=== PATIENT | male | born 1990 | race African-American/Black ===

== ENCOUNTER 2018-04-29 19:02 | Emergency (ER) | payer BC ==
[~2018-04-29] VITALS: Ht 180.3 cm; Wt 86.2 kg
[2018-04-29] MEDS ORDERED: IV RINGERS SOLUTION,LACTATED 1,000 ML IV SCH (19:13)
--- NOTE | 2018-04-29 19:22 | ED.ADGEN ---
Past History Past Medical History: Seizure Adult General Chief Complaint Chief Complaint "... I think I had seizure... I take a seizure med.. 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 Patient reports he takes 300 mg of suspected ( color of capsules) Dilantin every night. No change in med routine other than he states he has missed some dosages of his seizure meds. No history of fever or chills or immunosuppression. Patient reportedly found somewhat confused and appeared to be postictal by fellow longterm staff. Patient still appears somewhat post ictal. Moves all extremities on request. No obvious focal complaints. DTRs +2 patella and brachial. Trolley Collector equal. No drift. Ambulatory without problems. Pt. has not seen his neurologist for > 6 yrs. Review of Systems Review of Systems Constitutional: Denies fever or chills [] Eyes: Denies change in visual acuity, redness, or eye pain [] HENT: Denies nasal congestion or sore throat [] Respiratory: Denies cough or shortness of breath [] Cardiovascular: No additional information not addressed in HPI [] GI: Denies abdominal pain, nausea, vomiting, bloody stools or diarrhea [] : Denies dysuria or hematuria [] Musculoskeletal: Denies back pain or joint pain []Some generalize muscle aches like when he has a seizure. Integument: Denies rash or skin lesions [] Neurologic: Denies headache, focal weakness or sensory changes [] Endocrine: Denies polyuria or polydipsia [] All other systems were reviewed and found to be within normal limits, except as documented in this note. Family History Family History Non-contributory Current Medications Current Medications Current Medications Medications (Trade) Dose Ordered Sig/Behzad Start Time Stop Time Status Last Admin Dose Admin Lactated Ringer's 1,000 ml @ 1,000 mls/hr Q1H 04/29/18 19:13 04/29/18 20:12 DC 04/29/18 19:27 1,000 MLS/HR Lorazepam (Ativan) 2 mg 1X ONCE 04/29/18 19:30 04/29/18 19:31 DC 04/29/18 19:28 2 MG Ondansetron HCl (Zofran Odt) 8 mg 1X ONCE 04/29/18 19:30 04/29/18 19:31 DC 04/29/18 19:30 8 MG Phenytoin Sodium (Dilantin) 600 mg 1X ONCE 04/29/18 20:15 04/29/18 20:16 DC 04/29/18 20:13 600 MG Allergies Allergies Allergies Coded Allergies Type Severity Reaction Last Updated Verified No Known Drug Allergies 04/29/18 No Physical Exam Physical Exam Constitutional: Well developed, well nourished, no acute distress, non-toxic appearance. [] HENT: Normocephalic, atraumatic, bilateral external ears normal, oropharynx moist, no oral exudates, nose normal. [] Eyes: PERRLA, EOMI, conjunctiva normal, no discharge. [] Neck: Normal range of motion, no tenderness, supple, no stridor. [] Cardiovascular:Heart rate regular rhythm, no murmur [] Lungs & Thorax: Bilateral breath sounds clear to auscultation [] Abdomen: Bowel sounds normal, soft, no tenderness, no masses, no pulsatile masses. [] Skin: Warm, dry, no erythema, no rash. [] Back: No tenderness, no CVA tenderness. [] Extremities: Some complaints of generalized muscle tenderness, no cyanosis, no clubbing, ROM intact, no edema. [] Neurologic: Alert and oriented X 3, normal motor function, normal sensory function, no focal deficits noted. [] Psychologic: Affect normal, judgement normal, mood normal. [] Current Patient Data Vital Signs Vital Signs Date Time Temp Pulse Resp B/P (MAP) Pulse Ox O2 Delivery O2 Flow Rate FiO2 04/29/18 20:17 92 16 135/72 (93) 100 Room Air 04/29/18 19:10 99.3 Lab Results Laboratory Tests Test 04/29/18 19:11 04/29/18 19:17 04/29/18 19:35 Glucose (Fingerstick) 85 mg/dL (70-99) White Blood Count 10.2 x10^3/uL (4.0-11.0) Red Blood Count 5.91 x10^6/uL (4.30-5.70) H Hemoglobin 15.4 g/dL (13.0-17.5) Hematocrit 45.7 % (39.0-53.0) Mean Corpuscular Volume 77 fL (79-100) L Mean Corpuscular Hemoglobin 26 pg (25-35) Mean Corpuscular Hemoglobin Concent 34 g/dL (31-37) Red Cell Distribution Width 14.2 % (11.5-14.5) Platelet Count 237 x10^3/uL (140-400) Neutrophils (%) (Auto) 78 % (31-73) H Lymphocytes (%) (Auto) 13 % (24-48) L Monocytes (%) (Auto) 6 % (0-9) Eosinophils (%) (Auto) 3 % (0-3) Basophils (%) (Auto) 0 % (0-3) Neutrophils # (Auto) 7.9 x10^3uL (1.8-7.7) H Lymphocytes # (Auto) 1.3 x10^3/uL (1.0-4.8) Monocytes # (Auto) 0.6 x10^3/uL (0.0-1.1) Eosinophils # (Auto) 0.3 x10^3/uL (0.0-0.7) Basophils # (Auto) 0.0 x10^3/uL (0.0-0.2) Sodium Level 139 mmol/L (136-145) Potassium Level 3.4 mmol/L (3.5-5.1) L Chloride Level 101 mmol/L (98-107) Carbon Dioxide Level 26 mmol/L (21-32) Anion Gap 12 (6-14) Blood Urea Nitrogen 10 mg/dL (8-26) Creatinine 1.3 mg/dL (0.7-1.3) Estimated GFR (Cockcroft-Gault) 66.2 Glucose Level 94 mg/dL (70-99) Calcium Level 9.1 mg/dL (8.5-10.1) Total Bilirubin 0.3 mg/dL (0.2-1.0) Direct Bilirubin 0.1 mg/dL (0.0-0.2) Aspartate Amino Transferase (AST) 45 U/L (15-37) H Alanine Aminotransferase (ALT) 25 U/L (16-63) Alkaline Phosphatase 148 U/L (46-116) H Troponin I Quantitative < 0.017 ng/mL (0-0.055) Total Protein 8.3 g/dL (6.4-8.2) H Albumin 4.3 g/dL (3.4-5.0) Phenytoin (Dilantin) Level 4.6 mcg/mL (10.0-20.0) L Phenytoin Last Dose Date Unknown Phenytoin Last Dose Time Unknown Urine Collection Type Unknown Urine Color Yellow Urine Clarity Hazy Urine pH 6.0 Urine Specific [place] 1.025 Urine Protein 30 mg/dl (NEG-TRACE) Urine Glucose (UA) Neg mg/dL (NEG) Urine Ketones (Stick) Trace mg/dL (NEG) Urine Blood Neg (NEG) Urine Nitrite Neg (NEG) Urine Bilirubin Neg (NEG) Urine Urobilinogen Dipstick 0.2 mg/dL (0.2 mg/dL) Urine Leukocyte Esterase Neg (NEG) Urine RBC 1-2 /HPF (0-2) Urine WBC 1-4 /HPF (0-4) Urine Squamous Epithelial Cells Few /LPF Urine Bacteria 0 /HPF (0-FEW) Urine Hyaline Casts Few /HPF Urine Mucus Mod /LPF EKG EKG [] Radiology/Procedures Radiology/Procedures [] Course & Med Decision Making Course & Med Decision Making Pertinent Labs and Imaging studies reviewed. (See chart for details). Follow up with primary and neurology. Pt. to take his normal 300 mg tonight and again in AM. Return if any concerns. Avoid hazard activity such as driving until released by primary. Return if any concerns. [] Final Impression Final Impression 1. Suspect Seizure 2. Sub- therapeutic Dilatin Level. [](4.6) Dragon Disclaimer Dragon Disclaimer This electronic medical record was generated, in whole or in part, using a voice recognition dictation system. AYO RUCKER MD Apr 29, 2018 19:22
[2018-04-29] MEDS ORDERED: ONDANSETRON ODT 4 MG TAB.RAPDIS PO ONE (19:30)
[2018-04-29] MEDS ORDERED: LORazepam 1 MG TABLET PO ONE (19:30)
--- NOTE | 2018-04-29 19:33 | EKG ---
[address] [address] Test Date: 2018-04-29 Test Time: 19:28:01 Pat Name: ELROY UPTON Department: Room: Gender: M Candy Puller: : 1990 Requested By: AYO RUCKER Order Number: [id number] Reading MD: Chapo Arechiga Measurements Intervals [place] Rate: 86 P: 33 SC: 174 QRS: 16 QRSD: 106 T: 15 QT: 340 QTc: 410 Interpretive Statements SINUS RHYTHM NO SPECIFIC ECG ABNORMALITIES RI6.01 No previous ECG available for comparison Electronically Signed On 05-03-2018 16:57:34 CDT by Chaop Arechiga
[2018-04-29 19:48] LABS: BASO % 0 % (0-3); EOS # 0.3 x10^3/uL (0.0-0.7); EOS % 3 % (0-3); HEMATOCRIT 45.7 % (39.0-53.0); HEMOGLOBIN 15.4 g/dL (13.0-17.5); LYMPH # 1.3 x10^3/uL (1.0-4.8); LYMPH % 13 % (24-48); MEAN CORPUSCULAR HEMOGLOBIN 26 pg (25-35); MEAN CORPUSCULAR HGB CONC 34 g/dL (31-37); MEAN CORPUSCULAR VOLUME 77 fL (79-100); MONO # 0.6 x10^3/uL (0.0-1.1); MONO % 6 % (0-9); NEUT # 7.9 x10^3uL (1.8-7.7); NEUT % 78 % (31-73); PLATELET COUNT 237 x10^3/uL (140-400); RED BLOOD COUNT 5.91 x10^6/uL (4.30-5.70); RED CELL DISTRIBUTION WIDTH 14.2 % (11.5-14.5); WHITE BLOOD COUNT 10.2 x10^3/uL (4.0-11.0)
[2018-04-29 19:57] LABS: CLARITY,URINE HAZY; COLOR,URINE YELLOW
[2018-04-29 19:57] LABS: ALBUMIN 4.3 g/dL (3.4-5.0); ALK PHOS 148 U/L (46-116); ALT (SGPT) 25 U/L (16-63); ANION GAP 12 (6-14); AST (SGOT) 45 U/L (15-37); BLOOD UREA NITROGEN 10 mg/dL (8-26); CALCIUM 9.1 mg/dL (8.5-10.1); CARBON DIOXIDE 26 mmol/L (21-32); CHLORIDE 101 mmol/L (98-107); CREATININE 1.3 mg/dL (0.7-1.3); DIRECT BILIRUBIN 0.1 mg/dL (0.0-0.2); GFR 66.2; GLUCOSE 94 mg/dL (70-99); PHENY 4.6 mcg/mL (10.0-20.0); POTASSIUM 3.4 mmol/L (3.5-5.1); SODIUM 139 mmol/L (136-145); TOTAL BILIRUBIN 0.3 mg/dL (0.2-1.0); TOTAL PROTEIN 8.3 g/dL (6.4-8.2)
[2018-04-29 20:13] LABS: BILIRUBIN,URINE NEG (NEG); GLUCOSE,URINE NEG (NEG); NITRITE,URINE NEG (NEG); UROBILINOGEN,URINE 0.2 mg/dL (0.2 mg/dL)
[2018-04-29 20:14] LABS: BACTERIA,URINE 0 /HPF (0-FEW); HYALINE CASTS, URINE FEW /HPF; SQUAMOUS EPITHELIAL CELL,UR FEW /LPF
[2018-04-29] MEDS ORDERED: PHENYTOIN SODIUM EXTENDED 100 MG CAPSULE PO ONE (20:15)
[2018-04-29 20:17] VITALS: BP 135/72
== END 2018-04-29 20:48 | disposition home or self-care (01) ==
LOC: ER 19:02
DX: R79.1 Abnormal coagulation profile (principal); R41.0 Disorientation, unspecified
CPT/HCPCS: 36415; 80048; 80076; 80185; 81001; 82947; 84484; 85025; 93005; 96360; 99285; J7120; Q0162

== ENCOUNTER 2019-04-04 16:41 | Emergency (ER) | payer OTHER, BC ==
[~2019-04-04] VITALS: Ht 180.3 cm; Wt 98.1 kg
--- NOTE | 2019-04-04 17:12 | PHYS DOC ---
Past History Past Medical History: Seizure Past Surgical History: Other Alcohol Use: Rarely Drug Use: None Adult General Chief Complaint Chief Complaint: BODY FLUID EXPOSURE HPI HPI 29-year-old male presents with body fluid exposure. The patient is unsure it was just toilet water or if there was urine or other substances in it. He works as a guard a local long term. He was helping clean up the cell next 2 this prisoner when the prisoner through fluids on him around a fair that was put up to prevent the prisoner from throwing things unable to the prisoners had a history of doing this in the past. The patient states that he got on his face and into his left eye. He has thoroughly rinsed the area. He denies any other injuries or complaints Review of Systems Review of Systems Constitutional: Denies fever or chills [] Eyes: Fluid exposure to the left eye[] HENT: Denies nasal congestion or sore throat [] Respiratory: Denies cough or shortness of breath [] Cardiovascular: No additional information not addressed in HPI [] GI: Denies abdominal pain, nausea, vomiting, bloody stools or diarrhea [] : Denies dysuria or hematuria [] Musculoskeletal: Denies back pain or joint pain [] Integument: Denies rash or skin lesions [] Neurologic: Denies headache, focal weakness or sensory changes [] Endocrine: Denies polyuria or polydipsia [] All other systems were reviewed and found to be within normal limits, except as documented in this note. Allergies Allergies Allergies Coded Allergies Type Severity Reaction Last Updated Verified shellfish derived Allergy Unknown 04/04/19 Yes Physical Exam Physical Exam Constitutional: Well developed, well nourished, no acute distress, non-toxic appearance. [] HENT: Normocephalic, atraumatic, bilateral external ears normal, oropharynx moist, no oral exudates, nose normal. [] Eyes: PERRLA, EOMI, conjunctiva normal, no discharge. [] Neck: Normal range of motion, no tenderness, supple, no stridor. [] Cardiovascular:Heart rate regular rhythm, no murmur [] Lungs & Thorax: Bilateral breath sounds clear to auscultation [] Abdomen: Bowel sounds normal, soft, no tenderness, no masses, no pulsatile masses. [] Skin: Warm, dry, no erythema, no rash. [] Back: No tenderness, no CVA tenderness. [] Extremities: No tenderness, no cyanosis, no clubbing, ROM intact, no edema. [] Neurologic: Alert and oriented X 3, normal motor function, normal sensory function, no focal deficits noted. [] Psychologic: Affect normal, judgement normal, mood normal. [] Current Patient Data Vital Signs Vital Signs Date Time Temp Pulse Resp B/P (MAP) Pulse Ox O2 Delivery O2 Flow Rate FiO2 04/04/19 16:41 98.7 63 18 97 Room Air EKG EKG [] Radiology/Procedures Radiology/Procedures [] Course & Med Decision Making Course & Med Decision Making Pertinent Labs and Imaging studies reviewed. (See chart for details) The patient does not have any current complaints. Labs drawn, CBC, CMP, hepatitis panel, HIV antibody screen. I'll inform the patient these will go back to his employer and they will follow up with him. He is stable for discharge at this time. [] Dragon Disclaimer Dragon Disclaimer This electronic medical record was generated, in whole or in part, using a voice recognition dictation system. Departure Departure: Impression: Primary Impression: Patient exposure to body fluids Disposition: HOME, SELF-CARE Condition: STABLE Referrals: MARCO BARTH RN, MSN, CELL CHANGER (PCP) Patient Instructions: Body Fluid Exposure KAREN GREEN DO April 04, 2019 17:12
[2019-04-04 17:20] VITALS: BP 134/87
[2019-04-04 17:20] LABS: BASO % 1 % (0-3); EOS # 0.3 x10^3/uL (0.0-0.7); EOS % 6 % (0-3); HEMATOCRIT 46.2 % (39.0-53.0); HEMOGLOBIN 15.3 g/dL (13.0-17.5); LYMPH # 1.3 x10^3/uL (1.0-4.8); LYMPH % 31 % (24-48); MEAN CORPUSCULAR HEMOGLOBIN 26 pg (25-35); MEAN CORPUSCULAR HGB CONC 33 g/dL (31-37); MEAN CORPUSCULAR VOLUME 78 fL (79-100); MONO # 0.2 x10^3/uL (0.0-1.1); MONO % 5 % (0-9); NEUT # 2.5 x10^3uL (1.8-7.7); NEUT % 58 % (31-73); PLATELET COUNT 193 x10^3/uL (140-400); RED BLOOD COUNT 5.89 x10^6/uL (4.30-5.70); RED CELL DISTRIBUTION WIDTH 14.1 % (11.5-14.5); WHITE BLOOD COUNT 4.4 x10^3/uL (4.0-11.0)
[2019-04-04 17:36] LABS: ALBUMIN 4.1 g/dL (3.4-5.0); ALBUMIN/GLOBULIN RATIO 1.1 (1.0-1.7); CALCIUM 9.1 mg/dL (8.5-10.1); CREATININE 1.1 mg/dL (0.7-1.3); GFR 96.4; POTASSIUM 3.5 mmol/L (3.5-5.1); TOTAL BILIRUBIN 0.3 mg/dL (0.2-1.0); TOTAL PROTEIN 7.7 g/dL (6.4-8.2)
== END 2019-04-04 17:20 | disposition home or self-care (01) ==
LOC: ER 16:41
DX: Z77.21 Contact with and (suspected) exposure to potentially hazardous body fluids (principal); Z91.013 Allergy to seafood
CPT/HCPCS: 36415; 80053; 85025; 86703; 86705; 86709; 86803; 87340; 99284

== ENCOUNTER 2019-06-26 17:34 | Emergency (ER) | payer OTHER, BC ==
--- NOTE | 2019-06-26 17:42 | ED.ADGEN ---
Past History Past Medical History: Seizure Past Surgical History: Other Alcohol Use: Rarely Drug Use: None Adult General Chief Complaint Chief Complaint ".. I was at work... I forgot to take my Dilantin a couple days... I had a seizure.. 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 Patient gives history of accidental noncompliance with his Dilantin medications. Patient has had seizures at his entire life with breakthrough seizures if he does not take his meds as directed. Patient currently on Dilantin. No history of fever or chills. No history immunosuppression. Up-to-date with vaccinations. Patient normally follows with Dr. Barth. Review of Systems Review of Systems Constitutional: Denies fever or chills [] Eyes: Denies change in visual acuity, redness, or eye pain [] HENT: Denies nasal congestion or sore throat []complains of right eyebrow laceration Respiratory: Denies cough or shortness of breath [] Cardiovascular: No additional information not addressed in HPI [] GI: Denies abdominal pain, nausea, vomiting, bloody stools or diarrhea [] : Denies dysuria or hematuria [] Musculoskeletal: Denies back pain or joint pain [] Integument: Denies rash or skin lesions [] Neurologic: Denies headache, focal weakness or sensory changes []complaints of a tonic clonic seizure Endocrine: Denies polyuria or polydipsia [] All other systems were reviewed and found to be within normal limits, except as documented in this note. Family History Family History Noncontributory Current Medications Current Medications Current Medications Medications (Trade) Dose Ordered Sig/Behzad Start Time Stop Time Status Last Admin Dose Admin Bacitracin (Bacitracin Topical Pkt) 1 pkt 1X ONCE 06/26/19 19:15 06/26/19 19:16 DC 06/26/19 20:15 1 PKT Cephalexin HCl (Keflex) 500 mg 1X ONCE 06/26/19 22:00 06/26/19 22:01 DC 06/26/19 22:23 500 MG Diphtheria/ Tetanus/Acell Pertussis (Boostrix) 0.5 ml ONCE ONCE 06/26/19 19:15 8/11/19 19:16 DC 06/26/19 20:15 0.5 ML Lactated Ringer's 1,000 ml @ 1,000 mls/hr Q1H 06/26/19 18:33 06/26/19 19:32 DC 06/26/19 18:51 1,000 MLS/HR Lidocaine HCl 20 ml 1X ONCE 06/26/19 19:15 06/26/19 19:16 DC Lidocaine/ Epinephrine (Xylocaine 2%-Epi 1:100,000) 20 ml 1X ONCE 06/26/19 19:15 06/26/19 19:16 DC 06/26/19 20:15 20 ML Lorazepam (Ativan Inj) 2 mg STK-MED ONCE 06/26/19 17:52 06/26/19 17:52 DC Ondansetron HCl (Zofran Odt) 8 mg 1X ONCE 06/26/19 21:30 06/26/19 21:03 DC Phenytoin Sodium (Dilantin) 300 mg 1X ONCE 06/26/19 22:00 06/26/19 22:01 DC 06/26/19 22:23 300 MG Tetanus/ Diphtheria Toxoids Adsorbed (Tenivac Vial) 0.5 ml ONCE ONCE 06/26/19 19:15 06/26/19 19:12 DC Allergies Allergies Allergies Coded Allergies Type Severity Reaction Last Updated Verified shellfish derived Allergy Unknown 04/04/19 Yes Physical Exam Physical Exam Constitutional: Well developed, well nourished, no acute distress, non-toxic ap pearance. [] HENT: Normocephalic, 6 cm laceration to bone on Rt eye brow, bilateral external ears normal, oropharynx moist, no oral exudates, nose normal. [] Eyes: PERRLA, EOMI, conjunctiva normal, no discharge. [] Reports no visual changes. No lateral nystagmus. Neck: Normal range of motion, no tenderness, supple, no stridor. [] Cardiovascular:Heart rate regular rhythm, no murmur [] Lungs & Thorax: Bilateral breath sounds clear to auscultation [] Abdomen: Bowel sounds normal, soft, no tenderness, no masses, no pulsatile masses. [] Skin: Warm, dry, no erythema, no rash. [] Back: No tenderness, no CVA tenderness. [] Extremities: No tenderness, no cyanosis, no clubbing, ROM intact, no edema. [] Neurologic: Alert and oriented X 3, normal motor function, normal sensory function, no focal deficits noted. []DTR + 2 patella and brachial. No drift. Physician Relations Manager equal. Rt. hand dominate. Ambulatory without problems. Psychologic: Affect normal, judgement normal, mood normal. [] Current Patient Data Vital Signs Vital Signs Date Time Temp Pulse Resp B/P (MAP) Pulse Ox O2 Delivery O2 Flow Rate FiO2 06/26/19 17:57 98 18 96 Room Air Lab Results Laboratory Tests Test 06/26/19 17:41 06/26/19 19:55 White Blood Count 12.6 x10^3/uL (4.0-11.0) H Red Blood Count 5.83 x10^6/uL (4.30-5.70) H Hemoglobin 15.1 g/dL (13.0-17.5) Hematocrit 46.2 % (39.0-53.0) Mean Corpuscular Volume 79 fL (79-100) Mean Corpuscular Hemoglobin 26 pg (25-35) Mean Corpuscular Hemoglobin Concent 33 g/dL (31-37) Red Cell Distribution Width 13.5 % (11.5-14.5) Platelet Count 301 x10^3/uL (140-400) Neutrophils (%) (Auto) 73 % (31-73) Lymphocytes (%) (Auto) 17 % (24-48) L Monocytes (%) (Auto) 7 % (0-9) Eosinophils (%) (Auto) 3 % (0-3) Basophils (%) (Auto) 1 % (0-3) Neutrophils # (Auto) 9.1 x10^3uL (1.8-7.7) H Lymphocytes # (Auto) 2.1 x10^3/uL (1.0-4.8) Monocytes # (Auto) 0.8 x10^3/uL (0.0-1.1) Eosinophils # (Auto) 0.4 x10^3/uL (0.0-0.7) Basophils # (Auto) 0.1 x10^3/uL (0.0-0.2) Prothrombin Time 11.1 SEC (9.4-11.4) Prothrombin Time INR 1.1 (0.9-1.1) Activated Partial Thromboplast Time 23 SEC (23-33) Sodium Level 142 mmol/L (136-145) Potassium Level 4.0 mmol/L (3.5-5.1) Chloride Level 104 mmol/L (98-107) Carbon Dioxide Level 18 mmol/L (21-32) L Anion Gap 20 (6-14) H Blood Urea Nitrogen 13 mg/dL (8-26) Creatinine 1.8 mg/dL (0.7-1.3) H Estimated GFR (Cockcroft-Gault) 54.6 Glucose Level 96 mg/dL (70-99) Calcium Level 9.7 mg/dL (8.5-10.1) Magnesium Level 2.2 mg/dL (1.8-2.4) Total Bilirubin 0.2 mg/dL (0.2-1.0) Direct Bilirubin 0.1 mg/dL (0.0-0.2) Aspartate Amino Transferase (AST) 53 U/L (15-37) H Alanine Aminotransferase (ALT) 27 U/L (16-63) Alkaline Phosphatase 136 U/L (46-116) H Creatine Kinase 439 U/L (39-308) H Troponin I Quantitative < 0.017 ng/mL (0-0.055) IG-Bao-W-Type Natriuretic Peptide 10 pg/mL (0-124) Total Protein 7.9 g/dL (6.4-8.2) Albumin 4.3 g/dL (3.4-5.0) Phenytoin (Dilantin) Level 1.6 mcg/mL (10.0-20.0) L Phenytoin Last Dose Date Unknown Phenytoin Last Dose Time Unknown Urine Collection Type Void Urine Color Yellow Urine Clarity Clear Urine pH 5.5 Urine Specific [place] 1.025 Urine Protein 30 mg/dl (NEG-TRACE) Urine Glucose (UA) Neg mg/dL (NEG) Urine Ketones (Stick) Neg mg/dL (NEG) Urine Blood Neg (NEG) Urine Nitrite Neg (NEG) Urine Bilirubin Neg (NEG) Urine Urobilinogen Dipstick 0.2 mg/dL (0.2 mg/dL) Urine Leukocyte Esterase Neg (NEG) Urine RBC Occ /HPF (0-2) Urine WBC Occ /HPF (0-4) Urine Squamous Epithelial Cells Few /LPF Urine Bacteria 0 /HPF (0-FEW) Urine Mucus Mod /LPF Urine Opiates Screen Neg (NEG) Urine Methadone Screen Neg (NEG) Urine Barbiturates Neg (NEG) Urine Phencyclidine Screen Neg (NEG) Urine Amphetamine/Methamphetamine Neg (NEG) Urine Benzodiazepines Screen Neg (NEG) Urine Cocaine Screen Neg (NEG) Urine Cannabinoids Screen Neg (NEG) Urine Ethyl Alcohol Neg (NEG) EKG EKG My interpretation EKG shows a sinus rhythm at 84 bpm. There is some nonspecific inferior changes. But no findings acute STEMI of contralateral changes. Does have an J-point findings in V2 3 and 4 but no contralateral changes.[] Radiology/Procedures Radiology/Procedures [address] [address] IMAGING REPORT Signed PATIENT: ELROY UPTON ACCOUNT: [id number] : 1990 LOCATION: ER AGE: 29 SEX: M EXAM STATUS: PRE ER ORD. PHYSICIAN: AYO RUCKER MD REASON: seizure PROCEDURE: CHEST PA & LATERAL Exam: Chest 2 views INDICATION: Seizure TECHNIQUE: Frontal and lateral views of the chest Comparisons: None FINDINGS: The cardiomediastinal silhouette and pulmonary vessels are within normal limits. The lung and pleural spaces are clear. IMPRESSION: No acute cardiopulmonary process. Electronically signed by: Tanvir Romero MD (06/26/2019 7:34 PM) [facility] DICTATED AND SIGNED BY: TANVIR ROMERO MD DATE: 06/26/191933 CC: AYO RUCKER MD; MARCO BARTH RN, MSN, WIRE ROPE FABRICATION SUPERVISOR ~ IMAGING REPORT Signed PATIENT: ANA UPTONPINO Yessica ACCOUNT: [id number] : 1990 LOCATION: ER AGE: 29 SEX: M EXAM STATUS: PRE ER ORD. PHYSICIAN: AYO RUCKER MD REASON: seizure PROCEDURE: CHEST PA & LATERAL Exam: Chest 2 views INDICATION: Seizure TECHNIQUE: Frontal and lateral views of the chest Comparisons: None FINDINGS: The cardiomediastinal silhouette and pulmonary vessels are within normal limits. The lung and pleural spaces are clear. IMPRESSION: No acute cardiopulmonary process. Electronically signed by: Tanvir Romero MD (06/26/2019 7:34 PM) [facility] DICTATED AND SIGNED BY: TANVIR ROMERO MD DATE: 06/26/191933 CC: AYO RUCKER MD; MARCO BARTH RN, MSN, WIRE ROPE FABRICATION SUPERVISOR ~ [][place] [address] IMAGING REPORT Signed PATIENT: LEROY UPTON ACCOUNT: [id number] : 1990 LOCATION: ER AGE: 29 SEX: M EXAM STATUS: PRE ER ORD. PHYSICIAN: AYO RUCKER MD REASON: Seizure, head injury above right eye PROCEDURE: CT HEAD AND CERVICAL SPINE WO Exam: CT head and cervical spine INDICATION: Seizure head injury TECHNIQUE: Sequential axial images through the head and cervical spine were obtained without the administration of IV contrast. Comparisons: None FINDINGS: Head: No focal parenchymal lesion or hemorrhage is identified. There is no midline shift or sulcal effacement. No acute vascular territory infarction is identified. Monroy-white distinction is preserved. The ventricular system is within normal limits without compression hydrocephalus. The basal cisterns are well maintained. Contusion overlying the right superior orbital ridge. Globes and intraorbital contents are normal. Frothy secretions within the left maxillary sinus. No acute fractures. Cervical spine: Vertebral body heights and alignment are well-maintained. Fractures of the cervical spine is not identified. No significant spondylotic changes in the cervical spine. Visualized paraspinal soft tissues are unremarkable. IMPRESSION: 1. Extracranial contusion overlying the right superior orbital ridge without underlying fracture or intracranial abnormality identified. 2. Negative CT C-spine for acute traumatic injury. 3. Sinus disease described above. Exposure: One or more of the following in the visualized dose reduction techniques were utilized for this examination: 1. Automated exposure control 2. Adjustment of the MA and/or KV according to patient size Use of iterative of reconstructive technique Electronically signed by: Tanvir Romero MD (06/26/2019 7:32 PM) [facility] DICTATED AND SIGNED BY: TANVIR ROMERO MD DATE: 06/26/191931 CC: AYO RUCKER MD; MARCO BARTH RN, MSN, WIRE ROPE FABRICATION SUPERVISOR ~ Course & Med Decision Making Course & Med Decision Making Pertinent Labs and Imaging studies reviewed. (See chart for details) Procedure note-laceration repair- Laceration clean with normal saline. Betadine applied to edge of laceration. Injected edge of laceration with 2% lidocaine and a supra orbital block. Re- irrigated laceration with normal saline. Sterile drape and gloves .Placed 6x 6-0 Vicryl deep sutures and 12x 6-0 proline sutures. Patient had no visual changes. Recent follow-up plastic surgery if unhappy with scarring. Patient apply Polysporin 4 times a day to laceration site. Keep area clean and dry. Patient take Dilantin as directed. Patient follow-up primary care. Patient take Keflex 500 mg 3 times a day . Use normal saline rinses multiple times a day. Use Flonase 2 sprays at night. Patient to keep laceration site clean and dry. Patient apply Polysporin to site 4 times a day. No direct shower water. Patient to remove every other suture had day 5 and the remainder at day 7. Patient to expect scarring. Patient use Steri-Strip after removal of sutures. Patient return of any concerns. Head injury precautions. [] Final Impression Final Impression 1. Laceration[] 6 cm right eyebrow 2. Seizure-Tonic Clonic 3. Head Injury 4. Left maxillary sinusitis 5. Subtherapeutic Dilantin level Dragon Disclaimer Dragon Disclaimer This electronic medical record was generated, in whole or in part, using a voice recognition dictation system. Dragon Disclaimer This chart was dictated in whole or in part using Voice Recognition software in a busy, high-work load, and often noisy Emergency Department environment. It may contain unintended and wholly unrecognized errors or omissions. AYO RUCKER MD Jun 26, 2019 17:42
[2019-06-26] MEDS ORDERED: IV RINGERS SOLUTION,LACTATED 1,000 ML IV SCH (18:33)
[2019-06-26 18:50] LABS: BASO # 0.1 x10^3/uL (0.0-0.2); BASO % 1 % (0-3); EOS # 0.4 x10^3/uL (0.0-0.7); EOS % 3 % (0-3); HEMATOCRIT 46.2 % (39.0-53.0); HEMOGLOBIN 15.1 g/dL (13.0-17.5); LYMPH # 2.1 x10^3/uL (1.0-4.8); LYMPH % 17 % (24-48); MEAN CORPUSCULAR HEMOGLOBIN 26 pg (25-35); MEAN CORPUSCULAR HGB CONC 33 g/dL (31-37); MEAN CORPUSCULAR VOLUME 79 fL (79-100); MONO # 0.8 x10^3/uL (0.0-1.1); MONO % 7 % (0-9); NEUT # 9.1 x10^3uL (1.8-7.7); NEUT % 73 % (31-73); PLATELET COUNT 301 x10^3/uL (140-400); RED BLOOD COUNT 5.83 x10^6/uL (4.30-5.70); RED CELL DISTRIBUTION WIDTH 13.5 % (11.5-14.5); WHITE BLOOD COUNT 12.6 x10^3/uL (4.0-11.0)
[2019-06-26 19:01] LABS: ALBUMIN 4.3 g/dL (3.4-5.0); ALK PHOS 136 U/L (46-116); ALT (SGPT) 27 U/L (16-63); ANION GAP 20 (6-14); AST (SGOT) 53 U/L (15-37); BLOOD UREA NITROGEN 13 mg/dL (8-26); CALCIUM 9.7 mg/dL (8.5-10.1); CARBON DIOXIDE 18 mmol/L (21-32); CHLORIDE 104 mmol/L (98-107); CREATININE 1.8 mg/dL (0.7-1.3); DIRECT BILIRUBIN 0.1 mg/dL (0.0-0.2); GFR 54.6; GLUCOSE 96 mg/dL (70-99); MAGNESIUM 2.2 mg/dL (1.8-2.4); PHENY 1.6 mcg/mL (10.0-20.0); SODIUM 142 mmol/L (136-145); TOTAL BILIRUBIN 0.2 mg/dL (0.2-1.0); TOTAL PROTEIN 7.9 g/dL (6.4-8.2)
[2019-06-26] MEDS ORDERED: BACITRACIN ZINC TOPICAL OINT PACKET. TP ONE (19:15)
[2019-06-26] MEDS ORDERED: LIDOCAINE 2% 20 ML VIAL. IJ ONE (19:15)
[2019-06-26] MEDS ORDERED: LIDOCAINE 2%/EPI 1:100,000 20 ML VIAL. IJ ONE (19:15)
[2019-06-26] MEDS ORDERED: TETANUS AND DIPHTHERIA TOX/PF 0.5 ML VIAL. VAX IM ONE (19:15)
[2019-06-26] MEDS ORDERED: PHENYTOIN SODIUM EXTENDED 100 MG CAPSULE PO ONE ×3 (19:15→22:00)
[2019-06-26] MEDS ORDERED: DIPHTH,PERTUSS(ACELL),TET TOX 0.5 ML DISP.SYRIN. VAX IM ONE (19:15)
--- NOTE | 2019-06-26 19:35 | RAD ---
Exam: CT head and cervical spine INDICATION: Seizure head injury TECHNIQUE: Sequential axial images through the head and cervical spine were obtained without the administration of IV contrast. Comparisons: None FINDINGS: Head: No focal parenchymal lesion or hemorrhage is identified. There is no midline shift or sulcal effacement. No acute vascular territory infarction is identified. Monroy-white distinction is preserved. The ventricular system is within normal limits without compression hydrocephalus. The basal cisterns are well maintained. Contusion overlying the right superior orbital ridge. Globes and intraorbital contents are normal. Frothy secretions within the left maxillary sinus. No acute fractures. Cervical spine: Vertebral body heights and alignment are well-maintained. Fractures of the cervical spine is not identified. No significant spondylotic changes in the cervical spine. Visualized paraspinal soft tissues are unremarkable. IMPRESSION: 1. Extracranial contusion overlying the right superior orbital ridge without underlying fracture or intracranial abnormality identified. 2. Negative CT C-spine for acute traumatic injury. 3. Sinus disease described above. Exposure: One or more of the following in the visualized dose reduction techniques were utilized for this examination: 1. Automated exposure control 2. Adjustment of the MA and/or KV according to patient size Use of iterative of reconstructive technique Electronically signed by: Tanvir Sesay MD (06/26/2019 7:32 PM) [facility]
--- NOTE | 2019-06-26 19:37 | RAD ---
Exam: Chest 2 views INDICATION: Seizure TECHNIQUE: Frontal and lateral views of the chest Comparisons: None FINDINGS: The cardiomediastinal silhouette and pulmonary vessels are within normal limits. The lung and pleural spaces are clear. IMPRESSION: No acute cardiopulmonary process. Electronically signed by: Tanvir Sesay MD (06/26/2019 7:34 PM) [facility]
[2019-06-26 20:16] LABS: AMPHETAMINE/METHAMPHETAMINE NEG (NEG); BARBITURATES NEG (NEG); BENZODIAZEPINES NEG (NEG); CANNABINOIDS NEG (NEG); COCAINE NEG (NEG); METHADONE NEG (NEG); OPIATES NEG (NEG); PHENCYCLIDINE NEG (NEG)
[2019-06-26 20:20] LABS: COLOR,URINE YELLOW
[2019-06-26 20:21] LABS: BACTERIA,URINE 0 /HPF (0-FEW); BILIRUBIN,URINE NEG (NEG); CLARITY,URINE CLEAR; GLUCOSE,URINE NEG (NEG); NITRITE,URINE NEG (NEG); RBC,URINE OCC /HPF (0-2); SQUAMOUS EPITHELIAL CELL,UR FEW /LPF; UROBILINOGEN,URINE 0.2 mg/dL (0.2 mg/dL); WBC,URINE OCC /HPF (0-4)
[2019-06-26] MEDS ORDERED: ONDANSETRON ODT 4 MG TAB.RAPDIS ONE ×2 (20:31→20:32)
[2019-06-26] MEDS ORDERED: CEPH-264 PO (20:43)
[2019-06-26] MEDS ORDERED: PHEN100C PO (20:43)
[2019-06-26 20:50] VITALS: BP 130/82
[2019-06-26] MEDS ORDERED: CEPHALEXIN 250 MG CAPSULE ONE (21:19)
[2019-06-26] MEDS ORDERED: CEPHALEXIN 250 MG CAPSULE PO ONE ×2 (21:30→22:00)
[2019-06-26] MEDS ORDERED: ONDANSETRON ODT 4 MG TAB.RAPDIS PO ONE (21:30)
--- NOTE | 2019-06-27 09:52 | EKG ---
[address] [address] Test Date: 2019-06-26 Test Time: 19:10:01 Pat Name: ELROY UPTON Department: Room: Gender: M Service Person: : 1990 Requested By: AYO RUCKER Order Number: [id number] Reading MD: Measurements Intervals [place] Rate: P: AR: QRS: QRSD: T: QT: QTc: Interpretive Statements
== END 2019-06-26 20:58 | disposition home or self-care (01) ==
LOC: ER 17:34
DX: S01.111A Laceration without foreign body of right eyelid and periocular area, initial encounter (principal); G40.89 Other seizures; J32.0 Chronic maxillary sinusitis; R89.2 Abnormal level of other drugs, medicaments and biological substances in specimens from other organs, systems and tissues; Z91.013 Allergy to seafood; W18.39XA Other fall on same level, initial encounter; Y93.89 Activity, other specified; Y92.89 Other specified places as the place of occurrence of the external cause; Y99.8 Other external cause status
CPT/HCPCS: 12014; 36415; 70450; 71046; 72125; 80048; 80076; 80185; 80307; 81001; 82550; 83735; 83880; 84484; 85025; 85610; 85730; 90471; 90715; 93005; 96360; 99285; J7120